=== PATIENT | male | born 1985 | race African-American/Black ===

== ENCOUNTER 2016-11-22 13:41 | Emergency (ER) | payer OTHER ==
[~2016-11-22] VITALS: Ht 190.5 cm; Wt 84.1 kg
[~2016-11-22 13:41] MED LIST: HYDR-3533 PO
[2016-11-22 13:43] VITALS: BP 130/68; PULSE 82; RESP 20; TEMP 98.5; O2SAT 99
--- NOTE | 2016-11-22 14:41 | PD ---
Physical Exam Time Seen by Provider: 14:39 Narrative 31 y/o male here with headache, slight blurred vision, bilateral leg pain for several days. vss. Seen at triage desk. Awaiting bed placement. Data Data Last Documented VS Vital Signs Date Time Temp Pulse Resp B/P Pulse Ox O2 Delivery O2 Flow Rate FiO2 11/22/16 13:43 98.5 82 20 130/68 99 Room Air [facility] Medical Record Reviewed: Yes Supervised Visit with SUNIL: Austin Balderas November 22, 2016 14:41
[2016-11-22] MEDS ORDERED: diphenhydrAMINE HCL 50 MG/ML VIAL IVP ONE (17:15)
[2016-11-22] MEDS ORDERED: PROCHLORPERAZINE INJ 10 MG/2 ML VIAL IVP ONE (17:15)
[2016-11-22] MEDS ORDERED: SODIUM CHLOR 0.9% 1000 ML INJ 1,000 ML IV ONE ×2 (17:15)
[2016-11-22] MEDS ORDERED: SODIUM CHLORIDE 0.9% FLUSH 10 ML FLUSH IVF PRN (17:15)
[2016-11-22] MEDS ORDERED: KETOROLAC TROMETHAMINE 30 MG/ML (IVP) VIAL IVP ONE (17:15)
--- NOTE | 2016-11-22 17:25 | PD ---
HPI Chief Complaint: Headache Time Seen by Provider: 17:21 Travel History International Travel<30 days: No Contact w/Intl Traveler<30days: No Traveled to known affect area: No History of Present Illness HPI 31 year old male presents to the ED for evaluation of headache, blurred vision and bilateral leg pain. The patient describes the headache as behind the right ear, constant, accompanied by intermittent blurred vision. Gradual onset, approximately 24 hours ago. He describes the leg pain as present for "a few weeks," crampy, worsened by working. 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 He endorses drinking plenty of water. He also endorses mildly decreased appetite. He denies chest pain, palpitations, abdominal pain, nausea, vomiting, numbness, tingling, weakness, limitations to ROM of the extremities. He was evaluated for leg pain and outside hospital 1 week ago and is currently taking Naprosyn with no improvement of symptoms. Denies chronic health problems, takes no daily medications. NKDA. PFSH Past Medical History Medical History: Denies Significant Hx Hx Anticoagulant Therapy: No Cardiovascular Problems: No Chemotherapy: No Cerebrovascular Accident: No Diabetes: No Diminished Hearing: No Musculoskeletal: No Neurologic: No Respiratory: No Immunizations Current: No Past Surgical History Surgical History: No Previous Surgery Hysterectomy: No Other Surgery: No Social History Alcohol Use: Yes (RARE - WINE,beer) Tobacco Use: Yes (1/2 PPD) Substance Use: No Allergies-Medications (Allergen,Severity, Reaction): Coded Allergies: Dilaudid (Verified Allergy, Severe, RESPIRATORY DISTRESS, 11/22/16) Reported Meds & Prescriptions Reported Meds & Active Scripts Active No Active Prescriptions or Reported Medications Review of Systems Except as stated in HPI: all other systems reviewed are Neg Physical Exam Narrative GENERAL: Well-nourished, well-developed black male in no acute distress. SKIN: Focused skin assessment warm/dry. HEAD: Normocephalic. Atraumatic. EYES: No scleral icterus. No injection or drainage. PERRLA. NECK: Supple, trachea midline. No JVD or lymphadenopathy. CARDIOVASCULAR: Regular rate and rhythm without murmurs, gallops, or rubs. 2+ DP and radial pulses bilaterally. RESPIRATORY: Breath sounds clear and equal bilaterally. No accessory muscle use. GASTROINTESTINAL: Abdomen soft, non-tender, nondistended. Active bowel sounds MUSCULOSKELETAL: No cyanosis, or edema. No tenderness to palpation of the joints bilaterally. Palpation of the quadriceps muscles bilaterally. Negative Homans sign bilaterally. The patient is noted to walk with a normal gait. NEUROLOGICAL: Awake and alert. Cranial nerves II through XII intact. Motor and sensory grossly within normal limits. Five out of 5 muscle strength in all muscle groups. Normal speech. No pronator drift. BACK: Nontender without obvious deformity. No CVA tenderness. Data Data Last Documented VS Vital Signs Date Time Temp Pulse Resp B/P Pulse Ox O2 Delivery O2 Flow Rate FiO2 11/22/16 13:43 98.5 82 20 130/68 99 Room Air Orders Complete Blood Count With Diff (11/22/16 17:01) Comprehensive Metabolic Panel (11/22/16 17:01) Ecg Monitoring (11/22/16 17:01) Iv Access Insert/Monitor (11/22/16 17:01) Oximetry (11/22/16 17:01) Sodium Chloride 0.9% Flush (Ns Flush) (11/22/16 17:15) Ketorolac Inj (Toradol Inj) (11/22/16 17:15) Prochlorperazine Inj (Compazine Inj) (11/22/16 17:15) Diphenhydramine Inj (Benadryl Inj) (11/22/16 17:15) Sodium Chlor 0.9% 1000 Ml Inj (Ns 1000 M (11/22/16 17:15) Sodium Chlor 0.9% 1000 Ml Inj (Ns 1000 M (11/22/16 17:15) MDM Medical Decision Making Medical Screen Exam Complete: Yes Emergency Medical Condition: Yes Differential Diagnosis dehydration versus electrolyte abnormality versus rhabdomyolysis versus cephalgia versus other Narrative Course 31 year old male presents to the ED for evaluation of headache, blurred vision and bilateral leg pain. The patient describes the headache as behind the right ear, constant, accompanied by intermittent blurred vision. Gradual onset, approximately 24 hours ago. He describes the leg pain as present for "a few weeks," crampy, worsened by working. 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 He endorses drinking plenty of water. He also endorses mildly decreased appetite. He denies chest pain, palpitations, abdominal pain, nausea, vomiting, numbness, tingling, weakness, limitations to ROM of the extremities. He was evaluated for leg pain and outside hospital 1 week ago and is currently taking Naprosyn with no improvement of symptoms. Vitals reviewed. Physical exam reveals a nontoxic appearing black male in no acute distress. No focal neuro deficits. Mild TTP of the bilateral quadriceps. Will treat headache, acquire labs to rule out rhabdo. After ~ 15 minutes the nurse reports that the patient "changed his mind" and left AGAINST MEDICAL ADVICE. Scripts No Active Prescriptions or Reported Meds Disposition: 07 AGAINST MEDICAL ADVICE Jelly Talavera November 22, 2016 17:25
== END 2016-11-22 18:10 | disposition left against medical advice (07) ==
LOC: NEPD 13:41
DX: R51 Headache (principal); H53.8 Other visual disturbances; M79.604 Pain in right leg; M79.605 Pain in left leg; F17.200 Nicotine dependence, unspecified, uncomplicated; Z53.29 Procedure and treatment not carried out because of patient's decision for other reasons
CPT/HCPCS: 99283

== ENCOUNTER 2016-12-10 23:05 | Emergency (ER) | payer OTHER ==
[~2016-12-10] VITALS: Ht 190.5 cm; Wt 80.3 kg
[2016-12-10 23:12] VITALS: BP 113/74; PULSE 77; RESP 16; TEMP 98.2; O2SAT 99
--- NOTE | 2016-12-11 01:06 | PD ---
HPI Chief Complaint: Cold / Flu Symptoms Time Seen by Provider: 00:38 Travel History International Travel<30 days: No Contact w/Intl Traveler<30days: No Traveled to known affect area: No History of Present Illness HPI The patient is a 31-year-old male that complains of generalized myalgias and headache for 2 days. His main complaint are the myalgias. The patient has been in multiple times for these myalgias. He does not have sickle cell disease , his hemoglobin has been normal in the past. He does not have rhabdomyolysis, his urines are not dark or bloody. He denies any fever, cough, chest pain or shortness of breath. He hurts from his neck including the arms and legs all the way down to his feet. 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 A follow-up venous study failed to show any thrombosis. The patient had been followed by a neurologist about these spells but, according to him the insurance changes made him go to another neurologist. He denies any blurred vision, numbness, tingling , nausea, focal weakness of any of his extremities. PFSH Past Medical History Hx Anticoagulant Therapy: No Cardiovascular Problems: No Chemotherapy: No Cerebrovascular Accident: No Diabetes: No Diminished Hearing: No Musculoskeletal: No Neurologic: No Respiratory: No Immunizations Current: No Past Surgical History Hysterectomy: No Other Surgery: No Social History Alcohol Use: Yes (RARE - WINE,beer) Tobacco Use: Yes (1/2 PPD) Substance Use: No Allergies-Medications (Allergen,Severity, Reaction): Coded Allergies: Dilaudid (Verified Allergy, Severe, RESPIRATORY DISTRESS, 12/11/16) Reported Meds & Prescriptions Reported Meds & Active Scripts Active No Active Prescriptions or Reported Medications Review of Systems Except as stated in HPI: all other systems reviewed are Neg Physical Exam Narrative GENERAL: The patient is alert, oriented 3 in moderate apparent distress with his generalized myalgias. His vital signs are normal. SKIN: Focused skin assessment warm/dry. Needle tracks nor wrist slash alvarez are noted. No skin rashes noted. HEAD: Atraumatic. Normocephalic. EYES: Pupils equal and round. No scleral icterus. No injection or drainage. ENT: No nasal bleeding or discharge. Mucous membranes pink and moist. NECK: Trachea midline. No JVD. There is no meningismus present. CARDIOVASCULAR: Regular rate and rhythm. No murmur appreciated. RESPIRATORY: No accessory muscle use. Clear to auscultation. Breath sounds equal bilaterally. GASTROINTESTINAL: Abdomen soft, non-tender, nondistended. Hepatic and splenic margins not palpable. MUSCULOSKELETAL: No obvious deformities. No clubbing. No cyanosis. No edema. The patient has tenderness around the trapezius muscles, the arms and legs. NEUROLOGICAL: Awake and alert. No obvious cranial nerve deficits. Motor grossly within normal limits. Normal speech. PSYCHIATRIC: Appropriate mood and affect; insight and judgment normal. Data Data Last Documented VS Vital Signs Date Time Temp Pulse Resp B/P Pulse Ox O2 Delivery O2 Flow Rate FiO2 12/10/16 23:12 98.2 77 16 113/74 99 Orders Complete Blood Count With Diff (12/11/16 01:06) Comprehensive Metabolic Panel (12/11/16 01:06) Ct Brain W/O Iv Contrast(Rout) (12/11/16 01:06) Ketorolac Inj (Toradol Inj) (12/11/16 01:45) Orphenadrine Inj (Norflex Inj) (12/11/16 01:45) Labs Laboratory Tests Test 12/11/16 01:15 White Blood Count 6.5 TH/MM3 Red Blood Count 4.51 MIL/MM3 Hemoglobin 12.0 GM/DL Hematocrit 37.1 % Mean Corpuscular Volume 82.3 FL Mean Corpuscular Hemoglobin 26.5 PG Mean Corpuscular Hemoglobin 32.2 % Concent Red Cell Distribution Width 12.7 % Platelet Count 211 TH/MM3 Mean Platelet Volume 8.1 FL Neutrophils (%) (Auto) 53.4 % Lymphocytes (%) (Auto) 32.4 % Monocytes (%) (Auto) 11.4 % Eosinophils (%) (Auto) 2.1 % Basophils (%) (Auto) 0.7 % Neutrophils # (Auto) 3.6 TH/MM3 Lymphocytes # (Auto) 2.1 TH/MM3 Monocytes # (Auto) 0.7 TH/MM3 Eosinophils # (Auto) 0.1 TH/MM3 Basophils # (Auto) 0.0 TH/MM3 CBC Comment DIFF FINAL Differential Comment Sodium Level 142 MEQ/L Potassium Level 3.4 MEQ/L Chloride Level 107 MEQ/L Carbon Dioxide Level 28.9 MEQ/L Anion Gap 6 MEQ/L Blood Urea Nitrogen 14 MG/DL Creatinine 0.85 MG/DL Estimat Glomerular Filtration 129 ML/MIN Rate Random Glucose 91 MG/DL Calcium Level 8.6 MG/DL Total Bilirubin 0.3 MG/DL Aspartate Amino Transf 19 U/L (AST/SGOT) Alanine Aminotransferase 20 U/L (ALT/SGPT) Alkaline Phosphatase 75 U/L Total Protein 7.1 GM/DL Albumin 3.4 GM/DL [facility] Medical Decision Making Medical Screen Exam Complete: Yes Emergency Medical Condition: Yes Medical Record Reviewed: Yes Interpretation(s) The CT brain shows opacification of the right frontal sinus and right anterior ethmoid somewhere in appearance to the 2013 exam. No acute intracranial abnormalities are noted. The CBC is normal except for hemoglobin of 12 and hematocrit of 37. The complete metabolic profile shows potassium 3.4 but is otherwise normal. Differential Diagnosis Brain tumor, brain hemorrhage, infarction brain, sickle cell diseaseextremely unlikely, rhabdomyolysisextremely unlikely, recurrent myalgiasetiology undetermined. Narrative Course The patient has recurrent myalgias etiology undetermined. He has had a spinal tap, MRI of the brain, venous study of the brain, CTs of the brain in the past and nothing has shown up. He should follow-up with a neurologist as he plans to do. He will be given Motrin 800 mg 3 times daily and Flexeril. He will be given a work excuse for 7 days. Diagnosis Primary Impression: Myalgia Additional Impression: Headache Additional Instructions: As you planned to do, follow-up with a neurologist. I think a neurologist would have the best chance of diagnosing this illness since the brain MRI in 2012 was the only positive finding. The Motrin is one tablet 3 times daily taken regularly for anti-inflammatory effect and the Flexeril is also 3 times daily. Med/Other Pt SpecificInfo: Prescription(s) given Scripts Cyclobenzaprine (Flexeril)10 Mg Tab10 Mg PO TID #30 TAB Ref 0 Prov:Ganesh Rogers MD 12/11/16 Ibuprofen 800 Mg Suh809 Mg PO TID #44 TAB Ref 0 Prov:Ganesh Rogers MD 12/11/16 Disposition: 01 DISCHARGE HOME Condition: Stable Ganesh Rogers MD December 11, 2016 01:06
[2016-12-11 01:29] LABS: AUTOMATED NEUTROPHIL # 3.6 TH/MM3 (1.8-7.7); BASOPHIL % 0.7 % (0.0-2.0); EOSINOPHIL # 0.1 TH/MM3 (0-0.4); EOSINOPHIL % 2.1 % (0.0-4.0); HEMATOCRIT 37.1 % (39.0-51.0); HEMO FLAGS DIFF FINAL; LYMPH % 32.4 % (9.0-44.0); LYMPHOCYTE # 2.1 TH/MM3 (1.0-4.8); MEAN CELL VOLUME 82.3 FL (80.0-100.0); MEAN CORPUSCULAR HEMOGLOBIN 26.5 PG (27.0-34.0); MEAN CORPUSCULAR HGB CONC 32.2 % (32.0-36.0); MONO % 11.4 % (0.0-8.0); NEUT % 53.4 % (16.0-70.0); PLATELET COUNT 211 TH/MM3 (150-450); RED BLOOD COUNT 4.51 MIL/MM3 (4.50-5.90); RED CELL DISTRIBUTION WIDTH 12.7 % (11.6-17.2); WHITE BLOOD COUNT 6.5 TH/MM3 (4.0-11.0)
[2016-12-11 01:36] LABS: CHLORIDE 107 MEQ/L (98-107); POTASSIUM 3.4 MEQ/L (3.5-5.1); SODIUM (NA) 142 MEQ/L (136-145)
[2016-12-11 01:40] LABS: ANION GAP 6 MEQ/L (5-15); BICARBONATE 28.9 MEQ/L (21.0-32.0); BLOOD UREA NITROGEN 14 MG/DL (7-18)
[2016-12-11 01:43] LABS: ALT (GPT) 20 U/L (12-78); AST (GOT) 19 U/L (15-37); GLOMERULAR FILTRATION RATE 129 ML/MIN (>89)
[2016-12-11 01:44] LABS: TOTAL BILIRUBIN ADULT 0.3 MG/DL (0.2-1.0)
[2016-12-11 01:45] LABS: ALKALINE PHOSPHATASE 75 U/L (45-117)
[2016-12-11] MEDS ORDERED: ORPHENADRINE INJ 60 MG/2 ML AMP IM ONE (01:45)
[2016-12-11] MEDS ORDERED: KETOROLAC TROMETHAMINE 60 MG/2 ML (IM) VIAL IM ONE (01:45)
--- NOTE | 2016-12-11 01:49 | RADHPO ---
EXAM DATE/TIME: 12/11/2016 01:15 [place] COMPARISON: No previous studies available for comparison. INDICATIONS : Headache for two days. RADIATION DOSE: 63.11 CTDIvol (mGy) MEDICAL HISTORY : None SURGICAL HISTORY : None. ENCOUNTER: Initial ACUITY: 2 days PAIN SCALE: 7/10 LOCATION: cranial TECHNIQUE: Multiple contiguous axial images were obtained of the head. Using automated exposure control and adj ustment of the mA and/or kV according to patient size, radiation dose was kept as low as reasonably a chievable to obtain optimal diagnostic quality images. FINDINGS: CEREBRUM: The ventricles are normal for age. No evidence of midline shift, mass lesion, hemorrhage or acute in farction. No extra-axial fluid collections are seen. POSTERIOR FOSSA: The cerebellum and brainstem are intact. The 4th ventricle is midline. The cerebellopontine angle i s unremarkable. EXTRACRANIAL: The visualized portion of the orbits is intact. There is opacification of the right frontal sinus and anterior right ethmoids similar to prior study in 2013 SKULL: The calvaria is intact. No evidence of skull fracture. CONCLUSION: 1. Opacification of the right frontal sinus and right anterior ethmoids similar in appearance to 2013 exam. No acute intracranial abnormalities. Berto Shukla MD on December 11, 2016 at 1:44 Board Certified Radiologist. This report was verified electronically.
[2016-12-11] MEDS ORDERED: CYCL1TAB29 PO (02:10)
[2016-12-11] MEDS ORDERED: IBUP800T23 PO (02:10)
[2016-12-11 02:30] VITALS: BP 125/70; RESP 16
== END 2016-12-11 02:34 | disposition home or self-care (01) ==
LOC: PHED 23:05
DX: M79.1 Myalgia (principal); R51 Headache; F17.200 Nicotine dependence, unspecified, uncomplicated
CPT/HCPCS: 70450; 80053; 85025; 96372; 99284; J1885; J2360

== ENCOUNTER 2017-05-09 22:07 | Emergency (ER) | payer SELFPAY ==
[~2017-05-09] VITALS: Ht 193 cm; Wt 79.0 kg
[~2017-05-09 22:07] MED LIST changes: +CYCL1TAB29 PO; -HYDR-3533 PO; +IBUP800T23 PO
[2017-05-09 22:18] VITALS: BP 107/68; PULSE 75; RESP 16; TEMP 98.7; O2SAT 100
[2017-05-09] MEDS ORDERED: MEDR4PAK PO (22:42)
[2017-05-09] MEDS ORDERED: diphenhydrAMINE HCL 50 MG CAP PO ONE (22:45)
[2017-05-09] MEDS ORDERED: methylPREDNISolone SOD SUCC 125 MG/2 ML VIAL IM ONE (22:45)
--- NOTE | 2017-05-09 22:48 | PD ---
HPI Chief Complaint: Bite or Sting Time Seen by Provider: 22:36 Travel History International Travel<30 days: No Contact w/Intl Traveler<30days: No Traveled to known affect area: No History of Present Illness HPI 31-year-old male presents to the emergency department for a sting on the left hand that occurred at 11 AM this morning. States that he was weed whacking around a fenced area and was stung by a wasp. States that he has any increased pain and swelling to the area with limited ROM secondary to moderate pain. Has a history of allergic reaction secondary to stings but denies anaphylaxis. Denies fever, chills, shortness of breath, abdominal pain or back pain. PFSH Past Medical History Hx Anticoagulant Therapy: No Cardiovascular Problems: No Chemotherapy: No Cerebrovascular Accident: No Diabetes: No Diminished Hearing: No Headaches: Yes Musculoskeletal: No Neurologic: No Respiratory: No Immunizations Current: No Past Surgical History Hysterectomy: No Other Surgery: No Social History Alcohol Use: Yes (RARE - WINE,beer) Tobacco Use: Yes (1/2 PPD) Substance Use: No Allergies-Medications (Allergen,Severity, Reaction): Coded Allergies: hydromorphone (Unverified Allergy, Severe, RESPIRATORY DISTRESS, 05/09/17) Reported Meds & Prescriptions Reported Meds & Active Scripts Active Medrol Dosepak (Methylprednisolone) 4 Mg Dspk 4 Mg PO DIRECTED Per Pharmacist direction Review of Systems Except as stated in HPI: all other systems reviewed are Neg Physical Exam Narrative GENERAL: Well-nourished, well-developed patient. SKIN: Focused skin assessment warm/dry. HEAD: Normocephalic. EYES: No scleral icterus. No injection or drainage. NECK: Supple, trachea midline. No JVD or lymphadenopathy. CARDIOVASCULAR: Regular rate and rhythm without murmurs, gallops, or rubs. RESPIRATORY: Breath sounds equal bilaterally. No accessory muscle use. GASTROINTESTINAL: Abdomen soft, non-tender, nondistended. MUSCULOSKELETAL: No cyanosis, or edema. Left hand- central lesion with 4cm edema surrounding the lesion, mild TTP to area, difficulty making a fist secondary to pain. Otherwise neurovascularly intact BACK: Nontender without obvious deformity. No CVA tenderness. Data Data Last Documented VS Vital Signs Date Time Temp Pulse Resp B/P (MAP) Pulse Ox O2 Delivery O2 Flow Rate FiO2 05/09/17 23:01 05/09/17 22:18 98.7 75 16 100 Orders Orders Methylprednisolone So Succ Inj (Solumedr (05/09/17 22:45) Diphenhydramine (Benadryl) (05/09/17 22:45) Ed Discharge Order (05/09/17 22:54) MDM Medical Decision Making Medical Screen Exam Complete: Yes Emergency Medical Condition: Yes Differential Diagnosis Allergic reaction versus anaphylaxis versus cellulitis Narrative Course 31 year male c/o pain to left hand after a wasp sting that occurred this morning at 11a. He did not take any medications to reduce his symptoms prior to arriving. Says he does usually get a mild allergic reaction to the area but does not have a history of anaphylaxis. He denies any systemic complaints such as shortness of breath. Physical exam demonstrated an area on the dorsal aspect of his left hand with edema and tenderness to palpation. Lungs CTAB without wheezes. Abd soft, nontender without masses. Pt given steroid and benedryl for treatment now. Advised to take medrol dose pack for outpatient treatment and benedryl OTC. Advised pt to return to ED if he developed swelling, shortness of breath, or wheezing. Diagnosis Primary Impression: Allergic reaction Qualified Codes: T78.40XA - Allergy, unspecified, initial encounter Referrals: Primary Care Physician Additional Instructions: As discussed, return to ED if you develop shortness of breath, wheezing, or swelling of the face. Take medications as prescribed. Scripts Methylprednisolone Dosepak (Medrol Dosepak) 4 Mg Dspk 4 MG PO DIRECTED, #1 DSPK 0 Refills Per Pharmacist direction Prov: Lew Cano MD 05/09/17 Disposition: 01 DISCHARGE HOME Condition: Stable Sonya Elise May 09, 2017 22:48
== END 2017-05-09 23:18 | disposition home or self-care (01) ==
LOC: PHEFT 22:07
DX: T63.461A Toxic effect of venom of wasps, accidental (unintentional), initial encounter (principal)
CPT/HCPCS: 96372; 99284; J2930; Q0163

== ENCOUNTER 2017-05-16 16:58 | Emergency (ER) | payer SELFPAY ==
[~2017-05-16] VITALS: Ht 193 cm; Wt 89.0 kg
[~2017-05-16 16:58] MED LIST changes: -CYCL1TAB29 PO; -IBUP800T23 PO; +MEDR4PAK PO
[2017-05-16 16:59] VITALS: BP 135/67; PULSE 79; RESP 15; TEMP 98.4; O2SAT 97
[2017-05-31] MEDS ORDERED: CYCL1TAB29 PO (19:19)
== END 2017-05-16 18:34 | disposition left against medical advice (07) ==
LOC: NED 16:58
DX: Z53.21 Procedure and treatment not carried out due to patient leaving prior to being seen by health care provider (principal)
CPT/HCPCS: 99281

== ENCOUNTER 2017-05-31 17:02 | Emergency (ER) | payer SELFPAY ==
[2017-05-31 17:04] VITALS: BP 132/81; PULSE 80; RESP 18; TEMP 98.8; O2SAT 100
--- NOTE | 2017-05-31 19:18 | PD ---
HPI Chief Complaint: Back/ Neck Pain or Injury Time Seen by Provider: 19:07 Travel History International Travel<30 days: No Contact w/Intl Traveler<30days: No Traveled to known affect area: No History of Present Illness HPI Patient comes in complaining of right-sided low back pain as a sharp stabbing pain is worse with certain movement ongoing for 2-3 weeks. Patient denies any known injury. Patient states he awoke with pain and when he rolled over in bed it made the pain worse. Patient states he's been using [id number] ibuprofen and Aleve that help some but does not completely alleviate the pain. Patient denies any injury, fevers, loss or change in bowel or bladder, numbness or tingling anywhere, weakness, history of IV drug use, or abdominal pain. Patient states pain is worse with certain movement and walking. Pain is worse first thing in the morning. Denies any radiation of the pain. PFSH Past Medical History Hx Anticoagulant Therapy: No Cardiovascular Problems: No Chemotherapy: No Cerebrovascular Accident: No Diabetes: No Diminished Hearing: No Headaches: Yes Musculoskeletal: No Neurologic: No Respiratory: No Immunizations Current: No Tetanus Vaccination: Unknown Influenza Vaccination: Yes Past Surgical History Hysterectomy: No Other Surgery: No Social History Alcohol Use: Yes (RARE - WINE,beer) Tobacco Use: Yes (1/2 PPD) Substance Use: No Allergies-Medications (Allergen,Severity, Reaction): Coded Allergies: hydromorphone (Unverified Allergy, Severe, RESPIRATORY DISTRESS, 05/31/17) Reported Meds & Prescriptions Reported Meds & Active Scripts Active Naprosyn (Naproxen) 500 Mg Tab 500 Mg PO Q12HR PRN Flexeril (Cyclobenzaprine HCl) 10 Mg Tab 10 Mg PO Q8HR PRN Medrol Dosepak (Methylprednisolone) 4 Mg Dspk 4 Mg PO DIRECTED Per Pharmacist direction Review of Systems Except as stated in HPI: all other systems reviewed are Neg Physical Exam Narrative GENERAL: Well-developed, well nourished, in no acute distress, and non-ill appearing. SKIN: Focused skin assessment warm and dry. HEAD: Atraumatic. Normocephalic. EYES: Pupils equal and round. EOMI. No scleral icterus. No injection or drainage. ENT: No nasal bleeding or discharge. Mucous membranes pink and moist. NECK: Trachea midline. Supple. No nuclear rigidity. RESPIRATORY: No accessory muscle use. No respiratory distress. GASTROINTESTINAL: Abdomen soft, non-tender, nondistended, and no guarding. Hepatic and splenic margins not palpable. No pulsatile mass. MUSCULOSKELETAL: No obvious deformities. No clubbing. No cyanosis. No edema. Full range of motion. No tenderness or crepitus over midline of the lumbar spine. Patient reports tenderness to palpation right lateral lumbar muscles. Straight leg test positive on right. Hip: FROM and equal BL with passive flexion , extension, Abduction, Adduction, and internal/external rotation. Pulses equal BL distal to injury. Capillary refill less than 2 seconds distal to injury and equal BL. FROM distal to injury and equal BL. Strength distal to injury equal BL. NV intact distal to injury and equal BL. Plantar flexion and dorsal flexion equal BL. Dorsal pulses equal BL. Sensation equal BL 1st web space. NEUROLOGICAL: Awake and alert. No obvious cranial nerve deficits. Motor grossly within normal limits. Normal speech. PSYCHIATRIC: Appropriate mood and affect; insight and judgment normal. Data Data Last Documented VS Vital Signs Date Time Temp Pulse Resp B/P (MAP) Pulse Ox O2 Delivery O2 Flow Rate FiO2 05/31/17 19:27 05/31/17 17:04 98.8 80 18 100 Room Air Orders Orders Ed Discharge Order (05/31/17 19:19) MDM Medical Decision Making Medical Screen Exam Complete: Yes Emergency Medical Condition: Yes Differential Diagnosis Fracture, strain, contusion, musculoskeletal pain, epidural abscess, other Narrative Course The patient presented complaining of back pain. There was no history of recent fall or trauma. There was no evidence to support genitourinary etiology. There is also no evidence to suggest vascular pathology such as AAA dissection. No fevers or other evidence to suspect infectious processes, abscess, osteomyelitis etc. The patients neurological exam is normal with normal motor and sensory. There is no saddle paresthesias reported and no bowel or bladder incontinence or retention. I suspect the pain is mechanical in nature. Clinical suspicion, plan of care and management was discussed with the patient. The patient was instructed to follow up with their health care provider. The patient was also instructed to return if the pain worsened, changed, or developed weakness or bowel or bladder trouble. The patient agreed with plan. Patient in no obvious distress upon re-evaluation. Patient was asked if they wanted to speak to my attending, which the patient did not wish to do at this time. Any questions/concerns in reference to patient diagnosis/condition discussed and clarified prior to patient's discharge. Reinforced sheer importance of close follow up with patient's primary physician or primary care clinic. Instructed patient to return to ED immediately, if symptoms return/ worsen. Patient showed understanding of above instructions. Further instructions and recommendations were detailed in discharge paperwork. Patient ambulated without difficulty out of ED at discharge. Diagnosis Primary Impression: Back pain Qualified Codes: M54.5 - Low back pain Referrals: [facility] [address] Patient Instructions: Acute Low Back Pain (ED), General Instructions Additional Instructions: Follow-up with your primary care physician in 3-5 days for reevaluation. Take all medication as prescribed. Return to the emergency department if symptoms get worse. Med/Other Pt SpecificInfo: Prescription(s) given Scripts Naproxen (Naprosyn) 500 Mg Tab 500 MG PO Q12HR Y for PAIN SCALE 1 TO 10, #14 TAB 0 Refills Prov: Robert Maurer MD 05/31/17 Cyclobenzaprine (Flexeril) 10 Mg Tab 10 MG PO Q8HR Y for MUSCLE PAIN, #15 TAB 0 Refills Prov: Robert Maurer MD 05/31/17 Disposition: 01 DISCHARGE HOME Condition: Stable Qamar Marcano May 31, 2017 19:18
[2017-05-31] MEDS ORDERED: NAPR500 PO (19:19)
[2017-05-31] MEDS ORDERED: CYCL10TA PO (19:19)
== END 2017-05-31 19:28 | disposition home or self-care (01) ==
LOC: NEPK 17:02
DX: M54.9 Dorsalgia, unspecified (principal); Z88.5 Allergy status to narcotic agent; Z79.899 Other long term (current) drug therapy
CPT/HCPCS: 99283

== ENCOUNTER 2017-06-18 10:17 | Emergency (ER) | payer SELFPAY ==
[~2017-06-18] VITALS: Ht 193 cm; Wt 90.0 kg
[~2017-06-18 10:17] MED LIST changes: +CYCL10TA PO; +NAPR500 PO
[2017-06-18 10:18] VITALS: BP 138/80; PULSE 88; RESP 16; TEMP 98.2; O2SAT 100
--- NOTE | 2017-06-18 13:22 | PD ---
HPI . Suicidal ideation Chief Complaint: Suicide Ideation/Attempt Time Seen by Provider: 13:21 Travel History International Travel<30 days: No Contact w/Intl Traveler<30days: No Traveled to known affect area: No History of Present Illness HPI 31 year old male patient for evaluation of suicidal ideation. Patient states he doesn't have a plan, but wants to end his life due to financial stress. Patient denies any previous suicide attempt or drug use outside of occasional marijuana. Patient denies any major medical history and doesn't take any daily medications. Patient denies any physiological complaint at this time. PFSH Past Medical History Hx Anticoagulant Therapy: No Cardiovascular Problems: No Chemotherapy: No Cerebrovascular Accident: No Diabetes: No Diminished Hearing: No Headaches: Yes Musculoskeletal: No Neurologic: No Respiratory: No Immunizations Current: No Tetanus Vaccination: < 5 Years Past Surgical History Surgical History: No Previous Surgery Hysterectomy: No Other Surgery: No Social History Alcohol Use: Yes (RARE - WINE,beer) Tobacco Use: Yes (1/2 PPD) Substance Use: No Allergies-Medications (Allergen,Severity, Reaction): Coded Allergies: hydromorphone (Unverified Allergy, Severe, RESPIRATORY DISTRESS, 06/18/17) Reported Meds & Prescriptions Reported Meds & Active Scripts Active No Active Prescriptions or Reported Medications Review of Systems Except as stated in HPI: all other systems reviewed are Neg Physical Exam Narrative GENERAL: Well-nourished, well-developed 31 year old black male patient in no acute distress. SKIN: Focused skin assessment warm/dry. HEAD: Normocephalic. Atraumatic. EYES: No scleral icterus. No injection or drainage. NECK: Supple, trachea midline. No JVD or lymphadenopathy. CARDIOVASCULAR: Regular rate and rhythm without murmurs, gallops, or rubs. RESPIRATORY: Breath sounds equal bilaterally. No accessory muscle use. GASTROINTESTINAL: Abdomen soft, non-tender, nondistended. MUSCULOSKELETAL: No cyanosis, or edema. BACK: Nontender without obvious deformity. No CVA tenderness. PSYCHIATRIC: No delusional thought processes. No hallucinations. Data Data Last Documented VS Vital Signs Date Time Temp Pulse Resp B/P (MAP) Pulse Ox O2 Delivery O2 Flow Rate FiO2 06/18/17 13:42 98.9 64 17 103/58 (73) 99 Room Air Orders Orders Diet Regular Basic (06/18/17 Lunch) Complete Blood Count With Diff (06/18/17 13:01) Basic Metabolic Panel (Bmp) (06/18/17 13:01) Urinalysis - C+S If Indicated (06/18/17 13:01) Psych Screen (06/18/17 13:01) Drug Screen, Random Urine (06/18/17 13:01) Alcohol (Ethanol) (06/18/17 13:01) Labs Laboratory Tests Test 06/18/17 13:10 06/18/17 13:15 Urine Color YELLOW Urine Turbidity CLEAR Urine pH 5.5 Urine Specific [place] 1.018 Urine Protein NEG mg/dL Urine Glucose (UA) NEG mg/dL Urine Ketones NEG mg/dL Urine Occult Blood NEG Urine Nitrite NEG Urine Bilirubin NEG Urine Urobilinogen LESS THAN 2.0 MG/DL Urine Leukocyte Esterase SMALL Urine RBC LESS THAN 1 /hpf Urine WBC 8 /hpf Urine Bacteria RARE /hpf Urine Mucus FEW /lpf Microscopic Urinalysis Comment CULT NOT INDICATED Urine Opiates Screen NEG Urine Barbiturates Screen NEG Urine Amphetamines Screen NEG Urine Benzodiazepines Screen NEG Urine Cocaine Screen NEG Urine Cannabinoids Screen NEG White Blood Count 9.0 TH/MM3 Red Blood Count 4.82 MIL/MM3 Hemoglobin 13.4 GM/DL Hematocrit 41.4 % Mean Corpuscular Volume 85.8 FL Mean Corpuscular Hemoglobin 27.8 PG Mean Corpuscular Hemoglobin Concent 32.4 % Red Cell Distribution Width 13.9 % Platelet Count 222 TH/MM3 Mean Platelet Volume 7.7 FL Neutrophils (%) (Auto) 70.2 % Lymphocytes (%) (Auto) 17.0 % Monocytes (%) (Auto) 11.2 % Eosinophils (%) (Auto) 1.3 % Basophils (%) (Auto) 0.3 % Neutrophils # (Auto) 6.3 TH/MM3 Lymphocytes # (Auto) 1.5 TH/MM3 Monocytes # (Auto) 1.0 TH/MM3 Eosinophils # (Auto) 0.1 TH/MM3 Basophils # (Auto) 0.0 TH/MM3 CBC Comment DIFF FINAL Differential Comment Blood Urea Nitrogen 10 MG/DL Creatinine 0.86 MG/DL Random Glucose 79 MG/DL Calcium Level 8.9 MG/DL Sodium Level 140 MEQ/L Potassium Level 4.1 MEQ/L Chloride Level 105 MEQ/L Carbon Dioxide Level 28.7 MEQ/L Anion Gap 6 MEQ/L Estimat Glomerular Filtration Rate 127 ML/MIN Ethyl Alcohol Level LESS THAN 3 MG/DL MDM Medical Decision Making Medical Screen Exam Complete: Yes Emergency Medical Condition: Yes Differential Diagnosis Depression versus suicidal ideation versus anxiety versus adjustment disorder versus mood disorder versus bipolar disorder versus schizophrenia versus paranoid disorder versus psychosis versus substance abuse versus alcohol abuse versus alcohol induced psychosis versus homicidality addition versus cutting versus personality disorder Narrative Course 31-year-old male patient presents emergency department for evaluation after having suicidal thoughts last night. Patient states his been very stressful financially and he just wants to end it all area patient denies having a plan to do this. Patient denies any homicidal thoughts. Patient denies any drug use outside of occasional marijuana. Patient is a smoker. Basic blood work and psych screen ordered and pending. Blood work shows no acute abnormalities. Patient is cleared for psych screening. Psych to dispo patient. Scripts No Active Prescriptions or Reported Meds Kavya Beauchamp Jun 18, 2017 13:22
[2017-06-18 13:32] LABS: AUTOMATED NEUTROPHIL # 6.3 TH/MM3 (1.8-7.7); BASOPHIL % 0.3 % (0.0-2.0); EOSINOPHIL # 0.1 TH/MM3 (0-0.4); EOSINOPHIL % 1.3 % (0.0-4.0); HEMATOCRIT 41.4 % (39.0-51.0); HEMO FLAGS DIFF FINAL; LYMPHOCYTE # 1.5 TH/MM3 (1.0-4.8); MEAN CELL VOLUME 85.8 FL (80.0-100.0); MEAN CORPUSCULAR HEMOGLOBIN 27.8 PG (27.0-34.0); MEAN CORPUSCULAR HGB CONC 32.4 % (32.0-36.0); MONO % 11.2 % (0.0-8.0); NEUT % 70.2 % (16.0-70.0); PLATELET COUNT 222 TH/MM3 (150-450); RED BLOOD COUNT 4.82 MIL/MM3 (4.50-5.90); RED CELL DISTRIBUTION WIDTH 13.9 % (11.6-17.2)
[2017-06-18 13:34] LABS: BACTERIA, URINE RARE /hpf; BLOOD, URINE NEG (NEG); COMMENT (UR) CULT NOT INDICATED; CULTURE IF INDICATED CULT NOT INDICATED; GLUCOSE,URINE NEG (NEG); KETONE, URINE NEG (NEG); MUCUS URINE FEW /lpf (OCC); NITRITE,URINE NEG (NEG); PH, URINE 5.5 (5.0-8.5); URINE COLOR YELLOW (YELLW/STRAW)
[2017-06-18 13:42] VITALS: BP 103/58; PULSE 64; RESP 17; TEMP 98.9; O2SAT 99
[2017-06-18 13:44] LABS: ANION GAP 6 MEQ/L (5-15); BICARBONATE 28.7 MEQ/L (21.0-32.0); BLOOD UREA NITROGEN 10 MG/DL (7-18); CHLORIDE 105 MEQ/L (98-107); GLOMERULAR FILTRATION RATE 127 ML/MIN (>89); POTASSIUM 4.1 MEQ/L (3.5-5.1); SODIUM (NA) 140 MEQ/L (136-145)
[2017-06-18 14:13] LABS: ALCOHOL LESS THAN 3 MG/DL (0-5)
[2017-06-18] MEDS ORDERED: CELE20TA PO (16:23)
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
--- NOTE | 2017-06-18 17:15 | PD ---
Physical Exam Date Seen by Provider: Jun 18, 2017 Time Seen by Provider: 17:14 Narrative 31-year-old male patient cleared psychiatrically and medically from our facility. Data Data Last Documented VS Vital Signs Date Time Temp Pulse Resp B/P (MAP) Pulse Ox O2 Delivery O2 Flow Rate FiO2 06/18/17 13:42 98.9 64 17 103/58 (73) 99 Room Air Orders Orders Diet Regular Basic (06/18/17 Lunch) Complete Blood Count With Diff (06/18/17 13:01) Basic Metabolic Panel (Bmp) (06/18/17 13:01) Urinalysis - C+S If Indicated (06/18/17 13:01) Psych Screen (06/18/17 13:01) Drug Screen, Random Urine (06/18/17 13:01) Alcohol (Ethanol) (06/18/17 13:01) ^ Other Nursing Orders (06/18/17 16:34) Labs Laboratory Tests Test 06/18/17 13:10 06/18/17 13:15 Urine Color YELLOW Urine Turbidity CLEAR Urine pH 5.5 Urine Specific [place] 1.018 Urine Protein NEG mg/dL Urine Glucose (UA) NEG mg/dL Urine Ketones NEG mg/dL Urine Occult Blood NEG Urine Nitrite NEG Urine Bilirubin NEG Urine Urobilinogen LESS THAN 2.0 MG/DL Urine Leukocyte Esterase SMALL Urine RBC LESS THAN 1 /hpf Urine WBC 8 /hpf Urine Bacteria RARE /hpf Urine Mucus FEW /lpf Microscopic Urinalysis Comment CULT NOT INDICATED Urine Opiates Screen NEG Urine Barbiturates Screen NEG Urine Amphetamines Screen NEG Urine Benzodiazepines Screen NEG Urine Cocaine Screen NEG Urine Cannabinoids Screen NEG White Blood Count 9.0 TH/MM3 Red Blood Count 4.82 MIL/MM3 Hemoglobin 13.4 GM/DL Hematocrit 41.4 % Mean Corpuscular Volume 85.8 FL Mean Corpuscular Hemoglobin 27.8 PG Mean Corpuscular Hemoglobin Concent 32.4 % Red Cell Distribution Width 13.9 % Platelet Count 222 TH/MM3 Mean Platelet Volume 7.7 FL Neutrophils (%) (Auto) 70.2 % Lymphocytes (%) (Auto) 17.0 % Monocytes (%) (Auto) 11.2 % Eosinophils (%) (Auto) 1.3 % Basophils (%) (Auto) 0.3 % Neutrophils # (Auto) 6.3 TH/MM3 Lymphocytes # (Auto) 1.5 TH/MM3 Monocytes # (Auto) 1.0 TH/MM3 Eosinophils # (Auto) 0.1 TH/MM3 Basophils # (Auto) 0.0 TH/MM3 CBC Comment DIFF FINAL Differential Comment Blood Urea Nitrogen 10 MG/DL Creatinine 0.86 MG/DL Random Glucose 79 MG/DL Calcium Level 8.9 MG/DL Sodium Level 140 MEQ/L Potassium Level 4.1 MEQ/L Chloride Level 105 MEQ/L Carbon Dioxide Level 28.7 MEQ/L Anion Gap 6 MEQ/L Estimat Glomerular Filtration Rate 127 ML/MIN Ethyl Alcohol Level LESS THAN 3 MG/DL MDM Supervised Visit with SUNIL: Yes Narrative Course 31-year-old male cleared medically and psychiatrically from our facility. I was asked to disposition the patient. Patient denies any homicidal or suicidal ideation at this time. Patient will be discharged home with his . Diagnosis Primary Impression: Depression Qualified Codes: F32.9 - Major depressive disorder, single episode, unspecified Referrals: [facility] (Out patient) Primary Care Physician Patient Instructions: Depression (ED), General Instructions Additional Instruction: Please return to emergency department if your symptoms return or worsen. Follow up with your primary care provider. Take medications as prescribed. Med/Other Pt SpecificInfo: Prescription(s) given Scripts Citalopram (Celexa) 20 Mg Tab 20 MG PO DAILY for Mental Health, #15 TAB 1 Refill Prov: Robby Syed MD 06/18/17 Disposition: 01 DISCHARGE HOME Condition: Stable Kavya Beauchamp [facility] Jun 18, 2017 17:15
== END 2017-06-18 17:28 | disposition home or self-care (01) ==
LOC: NEPJ 10:17
DX: F32.1 Major depressive disorder, single episode, moderate (principal); R45.851 Suicidal ideations; F17.200 Nicotine dependence, unspecified, uncomplicated; Z88.5 Allergy status to narcotic agent
CPT/HCPCS: 80048; 80307; 81001; 85025; 99285

== ENCOUNTER 2017-07-21 13:43 | Emergency (ER) | payer SELFPAY ==
[~2017-07-21] VITALS: Ht 193 cm; Wt 84.0 kg
[~2017-07-21 13:43] MED LIST changes: +CELE20TA PO; -CYCL10TA PO; -MEDR4PAK PO; -NAPR500 PO
[2017-07-21 13:46] VITALS: BP 127/60; PULSE 76; RESP 15; TEMP 98; O2SAT 100
[2017-07-21] MEDS ORDERED: CYCL10TA PO (14:40)
--- NOTE | 2017-07-21 14:40 | PD ---
HPI Chief Complaint: Musculoskeletal Complaint Time Seen by Provider: 14:32 Travel History International Travel<30 days: No Contact w/Intl Traveler<30days: No Traveled to known affect area: No History of Present Illness HPI 31-year-old male here with bilateral neck pain and muscle stiffness since this morning. He reports he awoke this morning and noticed his neck was stiff. No injury or trauma. He denies headache, fever, chills. He has no other medical complaints. He denies recent illness. He reports the pain is provoked by turning the head from side to side. Relieved with rest. Symptoms severity is mild. PFSH Past Medical History Medical History: Denies Significant Hx Hx Anticoagulant Therapy: No Cardiovascular Problems: No Chemotherapy: No Cerebrovascular Accident: No Diabetes: No Diminished Hearing: No Headaches: Yes Musculoskeletal: No Neurologic: No Respiratory: No Immunizations Current: No Past Surgical History Hysterectomy: No Other Surgery: No Social History Alcohol Use: Yes (RARE - WINE,beer) Tobacco Use: Yes (1/2 PPD) Substance Use: No Allergies-Medications (Allergen,Severity, Reaction): Coded Allergies: hydromorphone (Unverified Allergy, Severe, RESPIRATORY DISTRESS, 07/21/17) Reported Meds & Prescriptions Reported Meds & Active Scripts Active No Active Prescriptions or Reported Medications Review of Systems Except as stated in HPI: all other systems reviewed are Neg General / Constitutional: No: Fever Eyes: No: Visual changes HENT: No: Headaches Cardiovascular: No: Chest Pain or Discomfort Respiratory: No: Shortness of Breath Gastrointestinal: No: Abdominal Pain Genitourinary: No: Dysuria Neurologic: No: Weakness Psychiatric: No: Depression Physical Exam Narrative GENERAL: Alert male. Well appearing. SKIN: Warm and dry. No rash. HEAD: Normocephalic. EYES: No scleral icterus. No injection or drainage. NECK: Supple, trachea midline. No JVD or lymphadenopathy. No meningismus. Bilateral trapezius muscle tenderness. No cervical midline tenderness. CARDIOVASCULAR: Regular rate and rhythm RESPIRATORY: Breath sounds equal bilaterally. No accessory muscle use. GASTROINTESTINAL: Abdomen soft, non-tender, nondistended. MUSCULOSKELETAL: No cyanosis, or edema. BACK: Nontender without obvious deformity. No CVA tenderness. Data Data Last Documented VS Vital Signs Date Time Temp Pulse Resp B/P (MAP) Pulse Ox O2 Delivery O2 Flow Rate FiO2 07/21/17 13:46 98.0 76 15 127/60 82) 100 [facility] Medical Decision Making Medical Screen Exam Complete: Yes Emergency Medical Condition: Yes Differential Diagnosis Torticollis, cervical strain, meningitis, Narrative Course 31-year-old male here with nontraumatic neck pain and stiffness. The patient is well-appearing. He has no cervical midline tenderness. No meningismus. He has mild tenderness to the lateral trapezius muscles. He has a normal neurologic exam. He'll be treated for . Diagnosis Primary Impression: Neck muscle strain Qualified Codes: S16.1XXA - Strain of muscle, fascia and tendon at neck level , initial encounter Referrals: Primary Care Physician Additional Instructions: Take [id number] ibuprofen 800 mg every 6 hours for pain. Take the muscle relaxers as needed for muscle stiffness. Scripts Cyclobenzaprine (Flexeril) 10 Mg Tab 10 MG PO TID for Muscle Spasm, #15 TAB 0 Refills Prov: Veronica Ibrahim 07/21/17 Disposition: 01 DISCHARGE HOME Condition: Stable Veronica Ibrahim Jul 21, 2017 14:40
== END 2017-07-21 14:47 | disposition home or self-care (01) ==
LOC: PHEFT 13:43
DX: S16.1XXA Strain of muscle, fascia and tendon at neck level, initial encounter (principal); F17.200 Nicotine dependence, unspecified, uncomplicated
CPT/HCPCS: 99283

== ENCOUNTER 2017-09-29 12:23 | Emergency (ER) | payer SELFPAY ==
[~2017-09-29] VITALS: Ht 193 cm; Wt 79.6 kg
[~2017-09-29 12:23] MED LIST changes: -CELE20TA PO; +CYCL10TA PO
[2017-09-29 12:43] VITALS: BP 124/78; PULSE 63; RESP 16; TEMP 97.9; O2SAT 100
[2017-09-29] MEDS ORDERED: CYCL10TA PO (13:05)
[2017-09-29] MEDS ORDERED: IBUP1TAB7 PO (13:05)
--- NOTE | 2017-09-29 13:06 | PD ---
HPI Chief Complaint: Back/ Neck Pain or Injury Time Seen by Provider: 12:53 Travel History International Travel<30 days: No Contact w/Intl Traveler<30days: No Traveled to known affect area: No History of Present Illness HPI 41-year-old male here with low back pain after lifting heavy fence yesterday. Denies paresthesia or weakness in extremities. No incontinence. No fever chills. No saddle anesthesia. Symptom severity is moderate. And read by movement and relieved with rest. PFSH Past Medical History Medical History: Denies Significant Hx Hx Anticoagulant Therapy: No Cardiovascular Problems: No Chemotherapy: No Cerebrovascular Accident: No Diabetes: No Diminished Hearing: No Headaches: Yes Musculoskeletal: No Neurologic: No Respiratory: No Immunizations Current: No Tetanus Vaccination: < 5 Years Influenza Vaccination: No Past Surgical History Hysterectomy: No Other Surgery: No Social History Alcohol Use: Yes (RARE - WINE,beer) Tobacco Use: Yes (/2 PPD) Substance Use: No Allergies-Medications (Allergen,Severity, Reaction): Coded Allergies: hydromorphone (Unverified Allergy, Severe, RESPIRATORY DISTRESS, 09/29/17) Reported Meds & Prescriptions Reported Meds & Active Scripts Active Review of Systems General / Constitutional: No: Fever Eyes: No: Visual changes HENT: No: Headaches Cardiovascular: No: Chest Pain or Discomfort Respiratory: No: Shortness of Breath Gastrointestinal: No: Abdominal Pain Genitourinary: No: Dysuria Physical Exam Narrative GENERAL: Alert and well-appearing 31-year-old male SKIN: Warm and dry. HEAD: Atraumatic. Normocephalic. EYES: No injection or drainage. NECK: Supple CARDIOVASCULAR: Regular rate and rhythm. RESPIRATORY: No accessory muscle use. Clear to auscultation. Breath sounds equal bilaterally. MUSCULOSKELETAL: Extremities without clubbing, cyanosis, or edema. No obvious deformities. NEUROLOGICAL: Awake and alert. No obvious cranial nerve deficits. Motor grossly within normal limits. Five out of 5 muscle strength in the arms and legs. 2+ DTRs in lower extremities. Ambulating with a steady gait. BACK: No CVA tenderness. No rash. Mild+TTP number paraspinous musculature. No midline spine tenderness. Data Data Last Documented VS Vital Signs Date Time Temp Pulse Resp B/P (MAP) Pulse Ox O2 Delivery O2 Flow Rate FiO2 09/29/17 12:43 97.9 63 16 124/78 (93) 100 [facility] Medical Decision Making Medical Screen Exam Complete: Yes Emergency Medical Condition: Yes Differential Diagnosis Lumbar strain, lumbar spine fracture unlikely, herniated disc Narrative Course 31-year-old male here with low back pain after lifting heavy object yesterday. He has a normal neurologic exam. No midline spine tenderness. He'll be treated for lumbar strain Diagnosis Primary Impression: Lumbar strain Qualified Codes: S39.012A - Strain of muscle, fascia and tendon of lower back , initial encounter Referrals: Primary Care Physician Departure Forms: Tests/Procedures, Work Release Enter return to work date: Sep 30, 2017 Special Instructions: No heavy lifting for one week Additional Instructions: Medication as directed. Ice and/or heat for comfort. Avoid heavy lifting or strenuous activity. Scripts Cyclobenzaprine (Flexeril) 10 Mg Tab 10 MG PO TID for Muscle Spasm, #14 TAB 0 Refills Prov: Veronica Ibrahim 09/29/17 Ibuprofen (Ibuprofen) 800 Mg Tab 800 MG PO Q6HR Y for PAIN, #40 TAB 0 Refills Prov: Veronica Ibrahim 09/29/17 Disposition: 01 DISCHARGE HOME Condition: Stable Veronica Ibrahim Sep 29, 2017 13:06
== END 2017-09-29 13:13 | disposition home or self-care (01) ==
LOC: PHED 12:23 → PHEFT 13:13
DX: S39.012A Strain of muscle, fascia and tendon of lower back, initial encounter (principal); F17.210 Nicotine dependence, cigarettes, uncomplicated; X50.0XXA Overexertion from strenuous movement or load, initial encounter; Z88.8 Allergy status to other drugs, medicaments and biological substances
CPT/HCPCS: 99283

== ENCOUNTER 2017-12-07 23:39 | Emergency (ER) | payer SELFPAY ==
[~2017-12-07] VITALS: Ht 193 cm; Wt 79.2 kg
[~2017-12-07 23:39] MED LIST changes: +IBUP1TAB7 PO
[2017-12-07 23:40] VITALS: BP 133/74; PULSE 76; RESP 18; TEMP 98.3; O2SAT 100
[2017-12-08] MEDS ORDERED: PRED20 PO (00:11)
[2017-12-08] MEDS ORDERED: NORC5TAB PO (00:11)
[2017-12-08] MEDS ORDERED: CYCL10TA PO (00:11)
--- NOTE | 2017-12-08 00:11 | PD ---
HPI Chief Complaint: Back/ Neck Pain or Injury Time Seen by Provider: 23:45 Travel History International Travel<30 days: No Contact w/Intl Traveler<30days: No Traveled to known affect area: No History of Present Illness HPI The patient is a 32-year-old -[place] male who presents to the emergency department for back pain. The patient is a 4 day history of back pain located in the mid to low back, radiates down both legs to the mid calf area. He denies any weakness to lower extremities, does note the pain is worse with movement especially rotation to the left, rotation to the right, flexion, and extension. He denies any numbness or weakness to lower extremities. He denies any urinary incontinence. He denies any fecal incontinence, but does note mild constipation for the last 2 days. He denies any history of IV drug abuse, diabetes, or end-stage renal disease with dialysis. He denies any associated fever, chills, or sweats. He does have a history of back pain in the past secondary to an accident, had a workup in 2012 including MRIs and a lumbar puncture. He denies any associated nausea, vomiting, abdominal pain, hematuria, dysuria, frequency, or urgency. Symptoms are moderate. PFSH Past Medical History Hx Anticoagulant Therapy: No Cardiovascular Problems: No Chemotherapy: No Cerebrovascular Accident: No Diabetes: No Diminished Hearing: No Headaches: Yes Musculoskeletal: No Neurologic: No Respiratory: No Immunizations Current: No ?: Not Past Surgical History Surgical History: No Previous Surgery Hysterectomy: No Other Surgery: No Social History Alcohol Use: Yes (RARE - WINE,beer) Tobacco Use: Yes (1/2 PPD) Substance Use: No Allergies-Medications (Allergen,Severity, Reaction): Coded Allergies: hydromorphone (Verified Allergy, Severe, RESPIRATORY DISTRESS, 12/08/17) Reported Meds & Prescriptions Reported Meds & Active Scripts Active Flexeril (Cyclobenzaprine HCl) 10 Mg Tab 10 Mg PO TID Ibuprofen 800 Mg Tab 800 Mg PO Q6HR PRN Review of Systems Except as stated in HPI: all other systems reviewed are Neg General / Constitutional: No: Fever, Chills Cardiovascular: No: Chest Pain or Discomfort Respiratory: No: Shortness of Breath Gastrointestinal: No: Nausea, Vomiting, Abdominal Pain Genitourinary: No: Dysuria, Hematuria, Incontinence Musculoskeletal: Positive: Pain, No: Weakness Neurologic: No: Weakness, Focal Abnormalities, Paresthesia, Incontinence, Sensory Disturbance Physical Exam Narrative GENERAL: Awake, alert, nontoxic-appearing 32-year-old male who appears his stated age and is in no acute respiratory distress. SKIN: Focused skin assessment warm/dry. HEAD: Atraumatic. Normocephalic. EYES: No injection or drainage. ENT: Breath smells of tobacco. NECK: Trachea midline. No JVD. GASTROINTESTINAL: Abdomen soft, non-tender, nondistended. No rebound tenderness. Back: Tenderness of the paravertebral muscles bilateral with obvious spasm. Mild tenderness of the midline lumbar region. Back: Tenderness over the paravertebral muscles bilaterally. Mild tenderness of the mid lumbar region but no obvious deformity. MUSCULOSKELETAL: No obvious deformities. No clubbing. No cyanosis. No edema. Flexion of the great toes bilateral is 5 out of 5. Plantarflexion is 5 out of 5. Extension of the knees is 5 out of 5. Flexion of the hips is 5 out of 5. Positive dorsalis pedal pulses. Negative straight leg raise bilateral, however , flexion of the hips greater than 45% whether the knee is flexed or extended produces pain of the paravertebral muscles. NEUROLOGICAL: Awake and alert. No obvious cranial nerve deficits. Motor grossly within normal limits. Normal speech. Sensation is intact on the medial , lateral, dorsal aspect of the lower extremities bilaterally. Knee DTRs are 1 + and symmetric. Ankle DTRs are 2+ and symmetric. Babinski is downgoing. No clonus. PSYCHIATRIC: Appropriate mood and affect; insight and judgment normal. Data Data Last Documented VS Vital Signs Date Time Temp Pulse Resp B/P (MAP) Pulse Ox O2 Delivery O2 Flow Rate FiO2 12/07/17 23:45 18 12/07/17 23:40 98.3 76 133/74 (93) 100 Orders Orders Ketorolac Inj (Toradol Inj) (12/08/17 00:15) Orphenadrine Inj (Norflex Inj) (12/08/17 00:15) MDM Medical Decision Making Medical Screen Exam Complete: Yes Emergency Medical Condition: Yes Medical Record Reviewed: Yes Differential Diagnosis Differential diagnosis includes herniated disc, spinal stenosis, epidural abscess, musculoskeletal pain, AAA, back pain with radiculopathy. Narrative Course Neurologic exam is unremarkable except for knee DTRs are 1+ and symmetric, ankle DTRs are 2+ and symmetric, strength is 5 out of 5. Patient is 32 years old, has no history of cancer, IV drug abuse, end-stage renal disease on dialysis, or diabetes. I doubt epidural abscess. 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 He does have a history of similar back pain in the past after an accident. I reviewed the EMR , the patient had an MRI of the back that was performed on April 29, 2013 which revealed degenerative disc disease at L4-L5 with narrowed disc space and mild central disc bulge, possible annular tear at the disc level, otherwise negative exam. The patient was administered Toradol and Norflex IM. He will be discharged home on prednisone, Flexeril, and Rodeo as needed for night. He is advised to follow-up with a primary physician if symptoms persist for outpatient MRI. The patient agrees and understands. Diagnosis Primary Impression: Low back pain potentially associated with radiculopathy Patient Instructions: General Instructions Additional Instructions: Medications as directed. Follow-up with your primary physician if symptoms persist. No lifting over 10 pounds. Stretching exercises daily. Apply heat to the affected area. Return if symptoms worsen or progress. Med/Other Pt SpecificInfo: Prescription(s) given Scripts Hydrocodone-Acetaminophen (Rodeo) 5 Mg-325 Mg Tab 1 TAB PO Q6H Y for PAIN, #12 TAB 0 Refills Prov: Fabien Goff MD 12/08/17 Cyclobenzaprine (Flexeril) 10 Mg Tab 10 MG PO TID for Muscle Spasm for 5 Days, #15 TAB 0 Refills Prov: Fabien Goff MD 12/08/17 Prednisone (Prednisone) 20 Mg Tab 20 MG PO BID for 5 Days, #10 TAB 0 Refills Prov: Fabien Goff MD 12/08/17 Disposition: 01 DISCHARGE HOME Condition: Stable Fabien Goff MD December 08, 2017 00:11
[2017-12-08] MEDS ORDERED: ORPHENADRINE INJ 60 MG/2 ML AMP IM ONE (00:15)
[2017-12-08] MEDS ORDERED: KETOROLAC TROMETHAMINE 60 MG/2 ML (IM) VIAL IM ONE (00:15)
[2017-12-08 00:51] VITALS: BP 121/77
== END 2017-12-08 00:52 | disposition home or self-care (01) ==
LOC: PHED 23:39
DX: M54.16 Radiculopathy, lumbar region (principal); F17.200 Nicotine dependence, unspecified, uncomplicated; Z88.5 Allergy status to narcotic agent; Z79.899 Other long term (current) drug therapy
CPT/HCPCS: 96372; 99283; J1885; J2360

== ENCOUNTER 2018-07-20 22:26 | Observation (INO) ==
--- NOTE | 2018-07-20 22:43 | ED ---
HPI General Chief complaint: Chest Pain Stated complaint: Chest Pain Time Seen by Provider: 07/20/18 22:36 Source: patient Mode of arrival: ambulatory Limitations: no limitations History of Present Illness HPI narrative: The patient is a 32 year old male who presents to the [facility] emergency department with a history of left-sided chest pain that he reports is been coming and going since yesterday. He reports that yesterday it was more mild than today. He reports that at 8 PM it became severe. 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 He reports the pain is sharp in character. He reports that it radiates to the back of his head. The patient was brought in by ambulance services, and no medications were administered prior to arrival. He denies any prior history of hypertension, hyperlipidemia, or diabetes mellitus. He denies any prior history of DVT or PE. He denies having any lower extremity edema, calf pain, or erythema. The patient reports having a family history of myocardial infarction in his grandfather. He reports having associated shortness of breath. He denies having any nausea or vomiting. He denies having any diaphoresis. On review of systems otherwise, the patient denies having any known recent fevers, cough, congestion, neck pain, abdominal pain, urinary symptoms, or neurologic symptoms. The patient incidentally on review of systems reports having one episode of diarrhea yesterday. Related Data Home Medications Medication Instructions Recorded Confirmed No Known Home Medications 07/20/18 07/20/18 Allergies Allergy/AdvReac Type Severity Reaction Status Date / Time hydromorphone Allergy Severe RESPIRATORY Verified 04/30/18 15:10 DISTRESS Review of Systems ROS: all other systems reviewed are negative [facility] Medical History Medical History Anxiety (Acute) Chest pain (Acute) Surgical History Surgical History No history of previous surgery (Acute) Social History Social History Substance History: No History of Abuse Second Hand Smoke Exposure: No Smoking Status: Current every day smoker Tobacco Type: Cigarettes Packs Per Day: 0.5 Cigarettes Per Day: 10.0 How Often Do You Have a Drink Containing Alcohol: Monthly or less Recent Travel in [facility] within the Last 8 Weeks: No Recent Out of Country Travel within the Last 8 Weeks: No Immunization History Tetanus Immunization: >5 Years Exam Const General: cooperative, no acute distress and well developed Nutritional Appearance: well nourished Orientation: alert, awake and oriented x3 [facility] Head: normocephalic and atraumatic Nose: no nasal discharge and no epistaxis Mouth: moist mucous membranes Throat: posterior oropharynx normal and uvula midline Eyes Sclera: normal sclerae Pupils: PERRL Neck Neck: no meningeal signs, trachea midline and no JVD Chest Chest: normal inspection of the chest and no tenderness Resp Effort & Inspection: no use of accessory muscles Auscultation: clear to auscultation bilaterally Cardio Rate: regular rate Rhythm: regular rhythm Heart Sounds: no murmurs GI Inspection: non-distended Palpation: soft, no hepatosplenomegaly and nontender Back/Spine/Pelvis Back: no CVA tenderness Skin General: dry skin (warm) Neuro General: alert, awake, oriented x3 and other (Grossly nonfocal) Speech: speech normal Motor: no movement abnormalities noted Extrem General: normal to inspection (2+ pulses in all 4 extremities), no calf tenderness, no clubbing, no cyanosis and no edema Psych Mood: congruent mood Affect: normal affect Judgment: judgment good Course Initial Documented Vital Signs Temperature 99.2 F 07/20/18 22:32 Pulse Rate 60 07/20/18 22:32 Respiratory Rate 17 07/20/18 22:32 Blood Pressure 132/85 07/20/18 22:32 Pulse Oximetry 100 07/20/18 22:32 Last Documented Vital Signs Temperature 97.8 F 07/21/18 03:24 Pulse Rate 65 07/21/18 03:24 Respiratory Rate 18 07/21/18 03:24 Blood Pressure 113/55 L 07/21/18 03:24 Pulse Oximetry 99 07/21/18 03:24 Clinical Decision Support PERC Rule Age greater than or equal to 50: No HR greather than or equal to 100: No Sa02 on room air is less than 95%: No Unilateral Leg Swelling: No Hemoptysis: No Recent Surgery or Trauma: No Prior PE or DVT: No Hormone Use: No Wells' Criteria Questions Clinical Signs and Symptoms of DVT: No PE is primary diagnosis or equally likely: No Heart Rate greater than 100: No Immobilized at least 3 days or Surgery in previous 4 weeks: No Previous, objectively diagnosed PE or DVT: No Hemoptysis: No Malignancy with treatment within 6 months or palliative: No Wells' Criteria Score Wells' Criteria Score: 0 Medical Decision Making MDM Narrative Medical decision making narrative: During the course of the patient's emergency department visit, the patient's history, examination, and differential diagnosis were reviewed with the patient. The patient was placed on a electronic device monitor with oximetry and frequent blood pressure monitoring. The patient had IV access obtained and blood work sent for analysis. A diagnostic evaluation was started regarding the patient's chest pain. The patient was initially provided Nitroglycerin 1 inch to the chest wall, Tylenol 650 mg p.o. x1 for headache, aspirin 324 mg p.o. The patient's diagnostic studies are remarkable for normal white blood cell count of 6.6, hemoglobin is 13, platelets are 193, monocytosis of 13.4 on differential, PT PTT is within normal limits. Chemistry is remarkable for a potassium of 3.4, AST is 10, initial set of cardiac enzymes are within normal limits, lipase 45, BNP 5, CHEST X-RAY: Showed no acute cardiopulmonary disease , CT scan of the brain showed no acute intracranial abnormality, right sided paranasal sinus disease. The patient's results were discussed with the patient, including the plan of care. I explained that further testing and/ or monitoring is indicated based on the patient's history, examination, and/ or laboratory findings. Therefore, I recommended admission for additional evaluation. The patient expressed understanding and was agreeable with this plan. The patient was admitted to the hospital in stable condition and sent to a bed under the care of the [facility]. Medical Screen Exam Complete: Yes Emergency Medical Condition: Yes Lab Data Result diagrams: 07/20/18 23:18 07/20/18 23:18 Lab Results 07/20/18 07/20/18 07/20/18 Range/Units 23:18 23:18 23:18 WBC 6.6 (4.0-11.0) th/mm3 RBC 4.48 L (4.50-5.90) mil/mm3 Hgb 13.0 (13.0-17.0) gm/dL Hct 38.7 L (39.0-51.0) % MCV 86.6 (80.0-100.0) fL MCH 29.0 (27.0-34.0) pg MCHC 33.6 (32.0-36.0) % RDW 13.7 (11.6-17.2) % Plt Count 193 (150-450) th/mm3 MPV 8.8 (7.0-11.0) fL Neut % (Auto) 65.4 (16.0-70.0) % Lymph % (Auto) 19.8 (9.0-44.0) % [place] % (Auto) 13.4 H (0.0-8.0) % Eos % (Auto) 0.9 (0.0-4.0) % Baso % (Auto) 0.5 (0.0-2.0) % Neut # (Auto) 4.3 (1.8-7.7) th/mm3 Lymph # (Auto) 1.3 (1.0-4.8) th/mm3 [place] # (Auto) 0.9 (0.0-0.9) th/mm3 Eos # (Auto) 0.1 (0.0-0.4) th/mm3 Baso # (Auto) 0.0 (0.0-0.2) th/mm3 WBC Differential . Differential Comment Auto diff final PT (9.8-11.6) sec INR Ratio APTT (23.4-31.7) sec Fibrinogen (227-377) mg/dL Sodium 144 (136-145) meq/L Potassium 3.4 L (3.5-5.1) meq/L Chloride 106 (98-107) meq/L Carbon Dioxide 30.6 (21.0-32.0) meq/L Anion Gap 7 (5-15) meq/L BUN 7 (7-18) mg/dL Creatinine 1.05 (0.60-1.30) mg/dL Estimated GFR Greater than 89 (>89) mL/min Random Glucose 79 (74-106) mg/dL Calcium 8.6 (8.5-10.1) mg/dL Magnesium 2.0 (1.5-2.5) mg/dL Total Bilirubin 0.3 (0.2-1.0) mg/dL AST 10 L (15-37) U/L ALT 15 (12-78) U/L Alkaline Phosphatase 75 (45-117) U/L Total Creatine Kinase 172 (39-308) U/L CK-MB (CK-2) Less than 1.0 (0.5-3.6) ng/mL Troponin I Less than 0.02 L (0.02-0.05) ng/mL B-Natriuretic Peptide 5 (0-100) pg/mL Total Protein 7.7 (6.4-8.2) g/dL Albumin 3.8 (3.4-5.0) g/dL Lipase 45 L (73-393) U/L 07/20/18 07/21/18 07/21/18 Range/Units 23:18 02:50 05:30 WBC (4.0-11.0) th/mm3 RBC (4.50-5.90) mil/mm3 Hgb (13.0-17.0) gm/dL Hct (39.0-51.0) % MCV (80.0-100.0) fL MCH (27.0-34.0) pg MCHC (32.0-36.0) % RDW (11.6-17.2) % Plt Count (150-450) th/mm3 MPV (7.0-11.0) fL Neut % (Auto) (16.0-70.0) % Lymph % (Auto) (9.0-44.0) % [place] % (Auto) (0.0-8.0) % Eos % (Auto) (0.0-4.0) % Baso % (Auto) (0.0-2.0) % Neut # (Auto) (1.8-7.7) th/mm3 Lymph # (Auto) (1.0-4.8) th/mm3 [place] # (Auto) (0.0-0.9) th/mm3 Eos # (Auto) (0.0-0.4) th/mm3 Baso # (Auto) (0.0-0.2) th/mm3 WBC Differential Differential Comment PT 11.6 (9.8-11.6) sec INR 1.1 Ratio APTT 30.8 (23.4-31.7) sec Fibrinogen 229 (227-377) mg/dL Sodium (136-145) meq/L Potassium (3.5-5.1) meq/L Chloride (98-107) meq/L Carbon Dioxide (21.0-32.0) meq/L Anion Gap (5-15) meq/L BUN (7-18) mg/dL Creatinine (0.60-1.30) mg/dL Estimated GFR (>89) mL/min Random Glucose (74-106) mg/dL Calcium (8.5-10.1) mg/dL Magnesium (1.5-2.5) mg/dL Total Bilirubin (0.2-1.0) mg/dL AST (15-37) U/L ALT (12-78) U/L Alkaline Phosphatase (45-117) U/L Total Creatine Kinase 144 136 (39-308) U/L CK-MB (CK-2) (0.5-3.6) ng/mL Troponin I Less than 0.02 L Less than 0.02 L (0.02-0.05) ng/mL B-Natriuretic Peptide (0-100) pg/mL Total Protein (6.4-8.2) g/dL Albumin (3.4-5.0) g/dL Lipase (73-393) U/L Imaging Data Radiologist's impression: Chest X-Ray 07/20/18 22:36 CONCLUSION: No evidence of acute cardiopulmonary disease. Head CT 07/21/18 00:01 CONCLUSION: 1. No acute intracranial abnormality demonstrated. 2. Right side paranasal sinus disease. . ECG Data Attestation: I personally reviewed and interpreted this ECG as follows: Interpretation: The patient had an EKG done on arrival. The patient's EKG reveals a sinus rhythm heart rate of 65, QRS duration is 96 ms, QTC [address] segment elevation. J-point elevation is noted. No reciprocal changes. T waves are inverted in V1. Discharge Plan Discharge Disposition Patient Disposition: ED Admit(ED Internal Use Only) Discharge Order Discharge Orders: ED Use Only Admit Order (Routine); Ordered 07/21/18 Ordered By: Brooklynn Correa Discharge Details Diagnosis: Chest pain, rule out acute myocardial infarction Physicians Team ED Provider: Brooklynn Correa Primary Care Provider: Primary Care Linda Mcfarlane Attending Provider: Sejal Zazueta Discharge Interventions Interventions: ED Discharge Assessment Last Done: 07/21/18 02:44 Status ED Status: Admitted Observation Patient
--- NOTE | 2018-07-20 23:03 | XR ---
EXAM DATE: 07/20/2018 11:00 PM EST AGE/SEX: 32 years / Male INDICATIONS: Chest pain CLINICAL DATA: This is the patient's initial encounter. Patient reports that signs and symptoms have been present for 2 days and indicates a pain score of 6/10. MEDICAL/SURGICAL HISTORY: None. None. COMPARISON: No prior exams available for comparison. FINDINGS: A single AP view of the chest demonstrates the lungs to be symmetrically aerated without evidence of mass, infiltrate or effusion. The cardiomediastinal contours are unremarkable. Osseous structures a re intact. CONCLUSION: No evidence of acute cardiopulmonary disease. Electronically signed by: Saul Cedeno MD Board Certified Radiologist 07/20/2018 11:02 PM EST
[2018-07-20 23:43] LABS: Baso % (Auto) 0.5 % (0.0-2.0); Eos # (Auto) 0.1 th/mm3 (0.0-0.4); Eos % (Auto) 0.9 % (0.0-4.0); Hematocrit 38.7 % (39.0-51.0); Lymph # (Auto) 1.3 th/mm3 (1.0-4.8); Lymph % (Auto) 19.8 % (9.0-44.0); Mean Corpuscular HGB Conc 33.6 % (32.0-36.0); Mean Corpuscular Volume 86.6 fL (80.0-100.0); Mean Platelet Volume 8.8 fL (7.0-11.0); Mono # (Auto) 0.9 th/mm3 (0.0-0.9); Mono % (Auto) 13.4 % (0.0-8.0); Neut # (Auto) 4.3 th/mm3 (1.8-7.7); Neut % (Auto) 65.4 % (16.0-70.0); Platelet Count 193 th/mm3 (150-450); Red Blood Count 4.48 mil/mm3 (4.50-5.90); Red Cell Distribution Width 13.7 % (11.6-17.2); White Blood Count 6.6 th/mm3 (4.0-11.0)
[2018-07-20] MEDS ORDERED: Acetaminophen 325 MG Tablet PO ONE (23:53)
[2018-07-20 23:57] LABS: Alanine Aminotransferase 15 U/L (12-78); Albumin 3.8 g/dL (3.4-5.0); Anion Gap 7 meq/L (5-15); Aspartate Aminotransferase 10 U/L (15-37); Blood Urea Nitrogen 7 mg/dL (7-18); Calcium 8.6 mg/dL (8.5-10.1); Carbon Dioxide 30.6 meq/L (21.0-32.0); Chloride 106 meq/L (98-107); Glomerular Filtration Rate Greater Than 89 mL/min (>89); Glucose,Random 79 mg/dL (74-106); Lipase 45 U/L (73-393); Potassium 3.4 meq/L (3.5-5.1); Sodium 144 meq/L (136-145)
[2018-07-20 23:59] LABS: Activated Partial Thrombo Time 30.8 sec (23.4-31.7); INR 1.1 Ratio; Prothrombin Time 11.6 sec (9.8-11.6)
[2018-07-21 00:01] LABS: Alkaline Phosphatase 75 U/L (45-117); Creatine Kinase 172 U/L (39-308); Total Protein 7.7 g/dL (6.4-8.2)
--- NOTE | 2018-07-21 00:40 | CT ---
EXAM DATE: 07/21/2018 12:27 AM EST AGE/SEX: 32 years / Male INDICATIONS: Cephalgia. CLINICAL DATA: This is the patient's initial encounter. Patient reports that signs and symptoms have been present for 1 day and indicates a pain score of 10/10. MEDICAL/SURGICAL HISTORY: None. None. RADIATION DOSE: 56.35 CTDI (mGy) COMPARISON: No prior exams available for comparison. TECHNIQUE: CT of the head without contrast. Using automated exposure control and adjustment of the mA and/or kV according to patient size, radiation dose was kept as low as reasonably achievable to ob tain optimal diagnostic quality images. DICOM format image data is available electronically for revi ew and comparison. FINDINGS: Cerebrum: The ventricles are normal for age. No evidence of midline shift, mass lesion, hemorrhage or acute infarction. No extraaxial fluid collections are seen. Posterior Fossa: The cerebellum and brainstem are intact. The 4th ventricle is midline. The cerebe llopontine angle is unremarkable. Extracranial: There is mucoperiosteal thickening of the visualized right ethmoid, frontal and maxill charis air cells. Skull: The calvaria is intact. No evidence of skull fracture. CONCLUSION: 1. No acute intracranial abnormality demonstrated. 2. Right side paranasal sinus disease. . Electronically signed by: Saul Cedeno MD Board Certified Radiologist 07/21/2018 12:39 AM EST
[2018-07-21] MEDS ORDERED: Acetaminophen 500 MG Tablet PO PRN (00:52)
[2018-07-21 03:52] LABS: Creatine Kinase 144 U/L (39-308)
[2018-07-21 06:29] LABS: Creatine Kinase 136 U/L (39-308)
--- NOTE | 2018-07-21 08:18 | P.HPCA ---
History of Present Illness Primary Care Physician: No Primary Care Physician Chief Complaint: Chest pain History of Present Illness: 32-year-old male current smoker presents the emergency room for further evaluation left-sided chest pain. Onset 2 days ago, becoming more severe last evening. Nonexertional intermittent without precipitating or relieving factors. Characterized as sharp. No radiation. No associated symptoms of nausea, vomiting, dyspnea, diaphoresis. Inspiration and certain movements make pain worse. Not made worse when laying flat. No particular position makes pain better. Duration constant. No fever, chills, recent illness, or injury. Denies similar pain in the past. No recent illness within the last 4-6 weeks. Past cardiac testing None Social history Known hypertension, hyperlipidemia, or diabetes. Lifelong smoker, currently smokes 1/2 pack daily. No alcohol or recreational drug use. . 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 Family history Noncontributory for early onset cardiovascular disease. - Diagnosis (1) Atypical chest pain (2) Tobacco abuse (3) Hypokalemia Review of Systems All other systems reviewed negative except as stated in HPI PMFSH - History History Provided By: Patient - Medical History Medical History: Medical History (Last Updated 07/21/18 @ 11:45 by DUNCAN Gonzalez) Tobacco use Anxiety - Surgical History Surgical History: Surgical History (Last Reviewed 07/20/18 @ 22:42 by Brooklynn Correa MD) No history of previous surgery - Social History I have reviewed the patient's Social History: Yes - Tobacco History Second Hand Smoke Exposure: No Tobacco Use In Past 30 Days: Yes Smoking Status: Current every day smoker Tobacco Type: Cigarettes Packs Per Day: 0.5 Cigarettes Per Day: 10.0 - Alcohol History How Often Do You Have a Drink Containing Alcohol: Monthly or less - Substance Use History Substance History: No History of Abuse - Travel History History of Recent Travel: No Recent Travel in the [place] Within the Last 8 Weeks: No Recent Travel Out of the Country Within the Last 8 Weeks: No - Immunization History Tetanus Immunization: >5 Years Medications and Allergies Active Medications: Active Medications Acetaminophen (Tylenol) 500 mg PO Q4H PRN PRN Reason: HEADACHE Albuterol (Albuterol Neb (Geovanni)) 0.63 mg NEB ONCE ONE Stop: 07/21/18 08:17 Sodium Chloride (Ns Flush) 2 ml IV.FLUSH UNSCH PRN PRN Reason: FLUSH AFTER USING IV ACCESS Sodium Chloride (Ns Flush) 2 ml IV.FLUSH BID GEOVANNI Sodium Chloride (Ns Flush) 2 ml IV.FLUSH PRN PRN PRN Reason: FLUSH AFTER USING IV ACCESS Allergies Allergy/AdvReac Type Severity Reaction Status Date / Time hydromorphone Allergy Severe RESPIRATORY Verified 04/30/18 15:10 DISTRESS Exam Vital signs: Vital Signs 07/20/18 22:32 07/21/18 00:03 07/21/18 03:24 Temperature 99.2 F 97.8 F Pulse Rate 60 57 L 65 Respiratory Rate 17 15 18 Blood Pressure 132/85 126/91 H 113/55 L Pulse Oximetry 100 100 99 07/21/18 08:00 Temperature 97.3 F L Pulse Rate 75 Respiratory Rate 16 Blood Pressure 112/51 L Pulse Oximetry 99 Intake & Output 07/20/18 07/21/18 07/21/18 18:59 06:59 18:59 Intake Total 0 / 0 Balance 0 / 0 Weight 86.183 kg Intake: Oral 0 / 0 Other: # Voids 2 Date of Last Bowel Movement 07/20/18 # Bowel Movements 0 Weight On Admission 86.183 kg Narrative: GENERAL: Alert WN, WD, NAD, pleasant, tall, thin, male easily awakens from sleep HEAD: NC, AT EYES: Sclera clear, conjunctiva without injection, pupils equal and round ENT: Mucous membranes pink and moist NECK: Supple, no masses, trachea midline CV: RRR, without murmur, rub, gallop, no JVD, S1-S2. Left anterior chest discomfort easily reproduced with palpation. RESP: Diminished lungs throughout bilateral, no crackles, wheeze, or rhonchi, symmetrical chest rise, nonlabored, able to speak in full sentences ABD: Soft, NT, ND, no masses, positive bowel tones BACK: No scoliosis EXT: Pulses +2x4, no dependent edema MS: Normal tone x4 extremities, no obvious deformities, full range of motion, no reproducible discomfort with passive cervical ROM NEURO: Motor strength 5/5, gait WNL PSYCH: A+O x3, pleasant affect, appropriate speech, mood, insight and judgment SKIN: Normal turgor, normal texture, no lesions, no rashes, brisk cap refill, even hair distribution Results 07/20/18 23:18 12/27/18 23:18 Cardiac Enzymes 07/20/18 07/20/18 07/21/18 Range/Units 23:18 23:18 02:50 AST 10 L (15-37) U/L CK-MB (CK-2) Less than 1.0 (0.5-3.6) ng/mL Troponin I Less than 0.02 L Less than 0.02 L (0.02-0.05) ng/mL B-Natriuretic Peptide 5 (0-100) pg/mL 07/21/18 Range/Units 05:30 AST (15-37) U/L CK-MB (CK-2) (0.5-3.6) ng/mL Troponin I Less than 0.02 L (0.02-0.05) ng/mL B-Natriuretic Peptide (0-100) pg/mL Coagulation 07/20/18 07/20/18 Range/Units 23:18 23:18 PT 11.6 (9.8-11.6) sec APTT 30.8 (23.4-31.7) sec B-Natriuretic Peptide 5 (0-100) pg/mL CBC 07/20/18 Range/Units 23:18 WBC 6.6 (4.0-11.0) th/mm3 RBC 4.48 L (4.50-5.90) mil/mm3 Hgb 13.0 (13.0-17.0) gm/dL Hct 38.7 L (39.0-51.0) % Plt Count 193 (150-450) th/mm3 Neut # (Auto) 4.3 (1.8-7.7) th/mm3 Lymph # (Auto) 1.3 (1.0-4.8) th/mm3 Luna # (Auto) 0.9 (0.0-0.9) th/mm3 Eos # (Auto) 0.1 (0.0-0.4) th/mm3 Baso # (Auto) 0.0 (0.0-0.2) th/mm3 Comprehensive Metabolic Panel 07/20/18 Range/Units 23:18 Sodium 144 (136-145) meq/L Potassium 3.4 L (3.5-5.1) meq/L Chloride 106 (98-107) meq/L Carbon Dioxide 30.6 (21.0-32.0) meq/L BUN 7 (7-18) mg/dL Creatinine 1.05 (0.60-1.30) mg/dL Calcium 8.6 (8.5-10.1) mg/dL AST 10 L (15-37) U/L ALT 15 (12-78) U/L Alkaline Phosphatase 75 (45-117) U/L Total Protein 7.7 (6.4-8.2) g/dL Albumin 3.8 (3.4-5.0) g/dL Intake and Output 07/20/18 07/21/18 07/21/18 22:59 06:59 14:59 Intake Total 0 / 0 Balance 0 / 0 Intake: Oral 0 / 0 Other: # Voids 2 Date of Last Bowel Movement 07/20/18 # Bowel Movements 0 Weight 86.183 kg 86.183 kg Weight On Admission 86.183 kg - Imaging and Cardiology Imaging: Impressions Chest X-Ray 07/20/18 22:36 CONCLUSION: No evidence of acute cardiopulmonary disease. Head CT 07/21/18 00:01 CONCLUSION: 1. No acute intracranial abnormality demonstrated. 2. Right side paranasal sinus disease. . EKG interpretations - EKG EKG results cardiology: sinus rhythm, normal axis (diffuse st elevation, likely early repolarization) Caprini VTE Risk Assessment Caprini VTE Risk Assessment: No/Low Risk (score <= 1) Caprini Risk Assessment Model: Point Value = 1 Point Value = 2 Point Value = 3 Point Value = 5 Age 41-60 Minor surgery BMI > 25 kg/m2 Swollen legs Varicose veins or History of unexplained or recurrent spontaneous Oral contraceptives or hormone replacement Sepsis (< 1 month) Serious lung disease, including pneumonia (< 1 month) Abnormal pulmonary function Acute myocardial infarction Congestive heart failure (< 1 month) History of inflammatory bowel disease Medical patient at bed rest Age 61-74 Arthroscopic surgery Major open surgery (> 45 min) Laparoscopic surgery (> 45 min) Malignancy Confined to bed (> 72 hours) Immobilizing plaster cast Central venous access Age >= 75 History of VTE Family history of VTE Factor V Leiden Prothrombin [id number] Lupus anticoagulant Anticardiolipin antibodies Elevated serum homocysteine Heparin-induced thrombocytopenia Other congenital or acquired thrombophilia Stroke (< 1 month) Elective arthroplasty Hip, pelvis, or leg fracture Acute spinal cord injury (< 1 month) Prophylaxis Regimen: Total Risk Factor Score Risk Level Prophylaxis Regimen 0-1 Low Early ambulation 2 Moderate Order ONE of the following: *Sequential Compression Device (SCD) *Heparin 5000 units SQ BID 3-4 Higher Order ONE of the following medications: *Heparin 5000 units SQ TID *Enoxaparin/Lovenox 40 mg SQ daily (WT < 150 kg, CrCl > 30 mL/min) *Enoxaparin/Lovenox 30 mg SQ daily (WT < 150 kg, CrCl > 10-29 mL/min) *Enoxaparin/Lovenox 30 mg SQ BID (WT < 150 kg, CrCl > 30 mL/min) AND/OR *Sequential Compression Device (SCD) 5 or more Highest Order ONE of the following medications: *Heparin 5000 units SQ TID (Preferred with Epidurals) *Enoxaparin/Lovenox 40 mg SQ daily (WT < 150 kg, CrCl > 30 mL/min) *Enoxaparin/Lovenox 30 mg SQ daily (WT < 150 kg, CrCl > 10-29 mL/min) *Enoxaparin/Lovenox 30 mg SQ BID (WT < 150 kg, CrCl > 30 mL/min) AND *Sequential Compression Device (SCD) Assessment and Plan - Assessment (1) Atypical chest pain Code(s): R07.89 - Other chest pain Status: Acute Plan: Admitted chest pain center. Monitor on telemetry overnight. ACS ruled out with 2 sets of EKGs and cardiac enzymes. Seen and evaluated by Dr. Sejal Zazueta. Proceed with exercise cardiac stress test this morning. If unremarkable, plans to discharge home and follow-up with the primary care provider. Encouraged to establish with a primary care provider for further medical management and disease prevention. (2) Tobacco abuse Code(s): Z72.0 - Tobacco use Status: Chronic Plan: Strongly encouraged and stressed importance of tobacco cessation. Instructed to quit smoking. Made aware of Tobacco Free [place] program. Contact information will be provided upon discharge. (3) Hypokalemia Code(s): E87.6 - Hypokalemia Status: Acute Plan: 20 mEq potassium supplementation provided. H&P: Quality - VTE Deep Vein Thrombosis/Pulmonary Embolism Present on Admission: No
--- NOTE | 2018-07-21 16:46 | ECG ---
Date Performed: 07/21/2018 Time Performed: 05:43:44 PTAGE: 32 years EKG: Sinus rhythm POSSIBLE RIGHT VENTRICULAR CONDUCTION DELAY NONSPECIFIC ST ELEVATION BORDERLINE ECG Since PREVIOUS TRACING , no significant change noted PREVIOUS TRACIN07/21/2018 03.22 DOCTOR: Sejal Zazueta Interpretating Date/Time 07/21/2018 16:45:06
--- NOTE | 2018-07-21 16:54 | TR ---
Date Performed: 07/21/2018 Time Performed: 10:38:31 DOCTOR: Sejal Zazueta DRUG LIST: CLINICAL HISTORY: REASON FOR TEST: REASON FOR ENDING: OBSERVATION: CONCLUSION: Tyrone protocol completed. Stopped sec to reaching target heart rate and leg fatigue. Maximum IC=696 Target NK=903 Maximum HJ=770/62 Max target heart rate 89%. Diffuse st elevation at b aseline, likely early repolarization. No reprod chest discomfort. Rare PVC. Uplsoping st segments at peak. Excellent exercise tolerance. Normal bp response. Recovery quic and unremarkable. COMMENTS: No ischemia
--- NOTE | 2018-07-21 16:57 | ECG ---
Date Performed: 07/21/2018 Time Performed: 03:22:06 PTAGE: 32 years EKG: Sinus rhythm POSSIBLE RIGHT VENTRICULAR CONDUCTION DELAY ST ELEVATION CONSISTENT WITH INJURY, PERICARDITIS, OR EA RLY REPOLARIZATION ABNORMAL ECG Since PREVIOUS TRACING , no significant change noted PREVIOUS TRACIN07/20/2018 22.38 DOCTOR: Sejal Zazueta Interpretating Date/Time 07/21/2018 16:56:00
--- NOTE | 2018-07-21 16:58 | ECG ---
Date Performed: 07/20/2018 Time Performed: 22:38:09 PTAGE: 32 years EKG: Sinus rhythm POSSIBLE RIGHT VENTRICULAR CONDUCTION DELAY NONSPECIFIC ST ELEVATION BORDERLINE ECG Since PREVIOUS TRACING , no significant change noted PREVIOUS TRACIN04/30/2018 15.38 DOCTOR: Sejal Zazueta Interpretating Date/Time 07/21/2018 16:57:36
== END 2018-07-21 12:29 | disposition home or self-care (01) ==
LOC: NEDA 22:26 → NEPC 22:26 → NEPHCDU 07-21 02:36
PROVIDERS: ADMIT Internal Medicine Interventional Cardiology; ATTEND Internal Medicine Interventional Cardiology
CPT/HCPCS: 70450; 71010; 71045; 80053; 82550; 82552; 83520; 83690; 83735; 83880; 84484; 85025; 85384; 85610; 85730; 93005; 93017; 94664; 99285; G0378